=== PATIENT | male | born 1945 | race Caucasian/White ===

== ENCOUNTER → 2025-08-10 15:05 | Outpatient (REF) | payer MEDICARE, OTHER, SELFPAY | LOC: RCS 15:05 | PROVIDERS: ATTENDING PHYSICIAN Orthopaedic Surgery Hand Surgery; FAMILY PHYSICIAN Family Medicine | DX: Z01.818 Encounter for other preprocedural examination (principal) | CPT/HCPCS: 36415; 93005 ==

== ENCOUNTER → 2025-09-08 10:37 | Outpatient (REF) | payer MEDICARE, OTHER, SELFPAY ==
[2025-09-08 11:35] LABS: Blood Urea Nitrogen 16 mg/dl (9-20); Calcium 9.2 mg/dl (8.4-10.2); Carbon Dioxide 29 mmol/L (22-30); Chloride 98 mmol/L (98-107); Glucose 88 mg/dl (70-99); Potassium 4.8 mmol/L (3.5-5.1); Sodium 129 mmol/L (135-145)
[2025-09-08 11:46] LABS: eGFR 32.91
== END ==
LOC: REG 10:37
PROVIDERS: ATTENDING PHYSICIAN Physician Assistant
DX: N18.9 Chronic kidney disease, unspecified (principal)
CPT/HCPCS: 36415; 80048

== ENCOUNTER → 2025-09-09 07:12 | Outpatient (REF) | payer MEDICARE, OTHER, SELFPAY | LOC: RAD 07:12 | PROVIDERS: ATTENDING PHYSICIAN Orthopaedic Surgery Hand Surgery; FAMILY PHYSICIAN Family Medicine | DX: M25.511 Pain in right shoulder (principal) | CPT/HCPCS: 73200 ==

== ENCOUNTER → 2025-09-14 16:39 | Outpatient (REF) | payer MEDICARE, OTHER, SELFPAY ==
[2025-09-14 18:19] LABS: ALT (SGPT) 27 U/L (0-50); AST (SGOT) 29 U/L (17-59); Albumin 4.2 g/dl (3.5-5.0); Alkaline Phosphatase 87 U/L (38-126); Blood Urea Nitrogen 19 mg/dl (9-20); Calcium 9.4 mg/dl (8.4-10.2); Carbon Dioxide 31 mmol/L (22-30); Chloride 97 mmol/L (98-107); Glucose 86 mg/dl (70-99); Potassium 4.5 mmol/L (3.5-5.1); Sodium 133 mmol/L (135-145); Total Protein 6.9 g/dl (6.3-8.2); eGFR > 60.00
== END ==
LOC: REG 16:39
PROVIDERS: ATTENDING PHYSICIAN Internal Medicine Nephrology; FAMILY PHYSICIAN Family Medicine
DX: N17.0 Acute kidney failure with tubular necrosis (principal)
CPT/HCPCS: 36415; 80053; 82570; 83970; 84156

== ENCOUNTER → 2025-09-16 10:36 | Outpatient (REF) | payer MEDICARE, OTHER, SELFPAY ==
[2025-09-16 12:57] LABS: Height Cm 170.18 CM
[2025-09-16 12:58] LABS: Weight Kg 68.0 KG.
[2025-09-16 14:56] LABS: 24 Hour Urine Total Volume 3220 ml; Creat Clear Result 62.5 ml/min (61-166)
== END ==
LOC: REG 10:36
PROVIDERS: ATTENDING PHYSICIAN Internal Medicine Nephrology; FAMILY PHYSICIAN Family Medicine
DX: N17.0 Acute kidney failure with tubular necrosis (principal)
CPT/HCPCS: 81050; 82575

== ENCOUNTER 2025-09-21 06:19 | Day surgery (SDC) | payer MEDICARE, OTHER, SELFPAY ==
--- NOTE | 2025-09-01 12:14 | CM ---
Demographics: confirmed
Living situation: lives with , two story home
Support Person Post Operatively: , Carmen
History of
VN: No
SNF: No
Outpatient: [facility] when medically ready
Has patient purchased required equipment: yes
PCP: confirmed
Pharmacy: [facility]
Post Operative Discharge Plan: Home with .
[2025-09-03 13:52] VITALS: BMI 24.6
[2025-09-03 14:19] LABS: Hematocrit 44.8 % (39.0-52.0); Hemoglobin 15.7 g/dL (13.0-18.0); Mean Corp Hgb Conc. 35.0 g/dL (33.0-37.0); Mean Corpuscular Volume 87.2 fL (80.0-94.0); Platelet Count 258 10^3/uL (130-400); Red Cell Dist. Width 11.9 % (11.5-14.5)
[2025-09-03 14:42] LABS: ALT (SGPT) 27 U/L (0-50); AST (SGOT) 30 U/L (17-59); Albumin 4.0 g/dl (3.5-5.0); Alkaline Phosphatase 68 U/L (38-126); Blood Urea Nitrogen 21 mg/dl (9-20); Calcium 9.0 mg/dl (8.4-10.2); Carbon Dioxide 28 mmol/L (22-30); Chloride 99 mmol/L (98-107); Glucose 71 mg/dl (70-99); Potassium 5.1 mmol/L (3.5-5.1); Sodium 133 mmol/L (135-145); Total Protein 6.7 g/dl (6.3-8.2)
[2025-09-03 15:58] LABS: Estimated Creatinine Clearance 23 ml/min; eGFR 27.83
[2025-09-03 18:27] VITALS: BMI 24.6
[2025-09-04 10:32] LABS: Glycohemoglobin (HgbA1c) 5.3 % (4.0-5.6)
[2025-09-21] VITALS (7 sets, daily range): BP systolic 100–152; BP diastolic 58–87; BMI 24.6
[2025-09-21] MEDS: NORMOSOL-R/PLASMALYTE-A 1000 IV (11:09)
[2025-09-21] MEDS: BACTROBAN NASAL 1 GRAM NASAL (11:17)
[2025-09-21] MEDS: TYLENOL 1000 MG PO (11:17)
[2025-09-21] MEDS: CELEBREX 200 MG PO (11:17)
[2025-09-21] MEDS: ANCEF 5 IV (16:24)
== END 2025-09-21 17:10 | disposition home or self-care (01) ==
LOC: SDS 06:19
PROVIDERS: ATTENDING PHYSICIAN Orthopaedic Surgery Hand Surgery; FAMILY PHYSICIAN Family Medicine; OTHER PHYSICIAN Physician Assistant; REFERRING PHYSICIAN Internal Medicine
DX: M19.011 Primary osteoarthritis, right shoulder (principal)
CPT/HCPCS: 23472; 36415; 73020; 80053; 83036; 85027; 87070; C1713; C1776

== ENCOUNTER 2025-09-24 20:20 | Emergency (ER) | payer MEDICARE, OTHER, SELFPAY ==
[2025-09-24 20:24] VITALS: BP 150/74
[2025-09-24 20:53] LABS: Hematocrit 35.8 % (39.0-52.0); Hemoglobin 12.3 g/dL (13.0-18.0); Mean Corp Hgb Conc. 34.4 g/dL (33.0-37.0); Mean Corpuscular Volume 88.6 fL (80.0-94.0); Nucleated Red Blood Cells % 0 % (-); Platelet Count 221 10^3/uL (130-400); Red Cell Dist. Width 12.1 % (11.5-14.5)
[2025-09-24 21:06] LABS: ALT (SGPT) 23 U/L (0-50); AST (SGOT) 37 U/L (17-59); Albumin 3.4 g/dl (3.5-5.0); Alkaline Phosphatase 77 U/L (38-126); Blood Urea Nitrogen 19 mg/dl (9-20); Calcium 8.5 mg/dl (8.4-10.2); Carbon Dioxide 29 mmol/L (22-30); Chloride 95 mmol/L (98-107); Glucose 103 mg/dl (70-99); Potassium 4.5 mmol/L (3.5-5.1); Sodium 127 mmol/L (135-145); Total Protein 5.9 g/dl (6.3-8.2); eGFR > 60.00
[2025-09-24 23:09] VITALS: BP 126/75
--- NOTE | 2025-09-25 00:41 | ED.GENMED ---
History of Present Illness
General
Chief Complaint: Swelling
Source: patient and spouse
Time Seen by Provider: 09/24/25 23:40
History of Present Illness
History of Present Illness:
80-year-old male presents to the emergency room complaining of swelling in his right arm. Patient is about postop day 3 from a right shoulder replacement. Patient was concerned because he noted some purplish discoloration and swelling of the
forearm. He denies any chest pain, shortness of breath, fever or chills. He has been following the postoperative instructions given by his surgeon is not moving his shoulder. Patient is right-hand dominant.
Past History
Past History
ED Past Medical History: GERD, Other (Osteoarthritis) and Other (diverticulosis)
ED Past Surgical History: Appendectomy, Orthopedic (Left knee arthroscopy, right Achilles repair, right knee arthroscopy, right shoulder surgery 09/14/2019.) and Other (Esophageal foreign body removal 2013)
Social History
Tobacco: Non-smoker
Alcohol: Occasional
Personal:
Living: with family
Employment: Retired
Family History
Family History: Cancer (Brother whom while on hospice care 09/14/2019)
Phy Exam
Physical Exam
Physical Exam:
General: Awake, Alert, Oriented X3. No acute distress.
Vitals: unremarkable
Head: Atraumatic
Eyes: Pupils equal, EOMI
Throat: Airway intact, no exudates
Neck: Trachea midline
Lungs: Clear and equal b/l
Heart: Regular rate, no murmurs
Neuro: Nonfocal
Skin: Warm, dry, no rash
Extremities: pulses equal b/l
Right upper extremity: Surgical dressing in place. No significant erythema or swelling noted of the shoulder. There are some mild ecchymosis tracking down to the elbow and forearm. No significant swelling of the forearm noted at
this time. Range of motion intact in the fingers. Sensation intact. Cap refill brisk.
Scores
Heart Failure Risk
Heart Failure Risk Score: Not Applicable
Course
Orders/Labs/Results
Orders:
Orders
09/24/25 20:31
Complete Blood Count/With Diff Urgent
Comprehensive Metabolic Panel Urgent
09/25/25
US Periph Venous UPPER Ext RT Urgent
Reason For Exam: swelling
Abnormal Lab Results
09/24/25
20:31
RBC 4.04 L 10^6/uL
(4.70-6.10)
Hgb 12.3 L g/dL
(13.0-18.0)
Hct 35.8 L %
(39.0-52.0)
Absolute Monos (auto) 0.9 H 10^3/uL
(0.1-0.6)
Immature Gran % 0.6 H %
(0-0.5)
Monocytes % 11.9 H %
(1.7-9.3)
Sodium 127 L mmol/L
(135-145)
Chloride 95 L mmol/L
(98-107)
Glucose 103 H mg/dl
(70-99)
Total Protein 5.9 L g/dl
(6.3-8.2)
Albumin 3.4 L g/dl
(3.5-5.0)
09/24/25 20:31
09/24/25 20:31
Vital Signs
Initial and Last Documented VS:
Initial Vital Signs
Temp Pulse Resp BP Pulse Ox
98.2 F 78 20 150/74 99
09/24/25 20:24 09/24/25 20:24 09/24/25 20:24 09/24/25 20:24 09/24/25 20:24
Last Documented Vital Signs
Temp Pulse Resp BP Pulse Ox
98.2 F 77 16 126/75 100
09/24/25 20:24 09/24/25 23:09 09/24/25 23:09 09/24/25 23:09 09/25/25 00:44
MDM/Problems Addressed
Differential Diagnosis Includes:
. Swelling, dependence. Ecchymosis, DVT
MDM/Problems Addressed:
Ultrasound shows no evidence of DVT. Physical exam is not concerning for any postoperative complication or infection. Suspect normal postoperative swelling and ecchymosis.
*Pulse Oximetry
SaO2: 100
Oxygen Mode of Delivery: Room air
Patient hypoxic: no
*Critical Care Note
Total Time (30-74mins, 75-104mins- exclusive of procedures): Not Applicable
ED Attending Note
-
Portions of this chart may have been created with voice recognition software.� Occasional wrong word or��sound alike� substitutions may have occurred due to the inherent limitations of voice recognition software.
Discharge Plan
Departure
Patient Disposition: Home (Routine Discharge)
Date of Disposition: 09/25/25
Time of Disposition: 00:41
Patient with high blood pressure during this ER visit?: No
Condition: Good
Discharge Problem:
Swelling of arm, Postoperative ecchymosis
Instructions: Swelling
Prescriptions:
No Action
cholecalciferol (vitamin D3) [Vitamin D3] 400 UNITS tablet
400 units PO DAILY
multivitamin with folic acid [Tab-A-Maribell] 1 TABLET tablet
1 tab PO DAILY
Patient Comments:
Mens Multivitamin
ascorbic acid (vitamin C) [Vitamin C] 500 MG tablet
500 mg PO DAILY Qty: 0 0RF
Fish Oil
1 dose PO DAILY
vitamin D3-vitamin K2
1 dose PO DAILY
oxycodone 5 mg tablet
5 - 10 mg PO Q6H PRN (Reason: moderate-severe pain) Qty: 30 0RF
Patient Comments:
for post op
Rx Instructions:
1 tab for moderate pain, 2 if severe.
Dx total joint.
gabapentin 300 mg capsule
300 mg PO HS Qty: 10 0RF
Patient Comments:
for post op
ondansetron HCl 4 mg tablet
4 mg PO Q6H PRN (Reason: nausea and vomiting) Qty: 30 0RF
Patient Comments:
for post op
famotidine [Pepcid] 20 mg tablet
20 mg PO HS Qty: 30 0RF
Patient Comments:
for post op
Rx Instructions:
Take nightly while on post-surgical pain meds to reduce GI upset.
doxycycline hyclate 100 mg capsule
100 mg PO BID Qty: 7 0RF
Patient Comments:
for post op
Rx Instructions:
Start night of discharge and continue twice a day until finished.
Take with probiotic.
mupirocin 2 % ointment
1 applic intranasal BID Qty: 1 0RF
Patient Comments:
Applied last HS by patient but not this am
magnesium L-lactate
1 tab PO HS
Nattokinase 50 mg Capsule
50 mg PO WEEKLY
tamsulosin 0.4 mg capsule
0.4 mg PO HS Qty: 10 0RF
Patient Comments:
Patient states that he forgot to start it pre op
Rx Instructions:
Start 3 nights prior to surgery and continue nightly until finished.
HOLD IF systolic blood pressure <100
acetaminophen [Acetaminophen Extra Strength] 500 mg tablet
1,000 mg PO Q6H Qty: 60 0RF
Rx Instructions:
DO NOT exceed >4000 mg daily.
docusate sodium [Colace] 100 mg capsule
100 mg PO BID Qty: 30 0RF
sennosides [senna] 8.6 mg tablet
17.2 mg PO BID Qty: 30 0RF
magnesium hydroxide [Milk of Magnesia] 400 mg/5 mL suspension
30 ml PO HS PRN (Reason: constipation) Qty: 3780 0RF
Rx Instructions:
Add to bowel regimen of Colace and Senna should no bowel movement occur within 48-72 hours post-surgery.
aspirin 325 mg tablet
325 mg PO DAILY Qty: 30 0RF
Rx Instructions:
Take daily x4 weeks for blood clot prevention; then resume Aspirin 81 mg daily.
Saccharomyces boulardii [Florastor] 250 mg capsule
250 mg PO BID Qty: 7 0RF
Rx Instructions:
Over the counter. Take while on antibiotic.
If unavailable, choose a different probiotic.
famotidine 20 MG tablet
20 mg PO HS Qty: 1 0RF
Rx Instructions:
Take nightly while on post-surgical pain meds to reduce GI upset.
Referrals:
Ismael Feng, [Family Provider, Family Practice]
Activity Restrictions/Additional Instructions:
I believe the swelling and abnormality noted of the right lower arm are related to your recent surgery. I think this is a combination of swelling from the surgery itself as well as the natural movement of bruising from the upper arm to the lower
arm. Follow-up with your orthopedic surgeon as directed. Give them a call tomorrow morning if you have any further concerns. Ultrasound of your arm shows no clots in the veins of your arm.
Interventions
Interventions:
*Risk Screen - Suicide Last Done: 09/24/25 22:16
*General Assessment Last Done: 09/24/25 20:24
*Neglect/Abuse Screening Last Done: 09/24/25 22:16
*ED- Fall Risk Assessment Last Done: 09/24/25 22:16
*Nursing Disposition Last Done: 09/25/25 01:06
ED- Cardiac Assessment Last Done: 09/24/25 22:16
ED- Pulmonary Assessment Last Done: 09/24/25 22:16
ED-Skin Assessment Last Done: 09/24/25 22:16
Discharge Date and Time
Discharge Date/Time: 11/08/25 01:07
Print Language: TURKMEN
== END 2025-09-25 01:07 | disposition home or self-care (01) ==
LOC: EMR 20:20
PROVIDERS: EMERGENCY PHYSICIAN Emergency Medicine; FAMILY PHYSICIAN Family Medicine
DX: R22.31 Localized swelling, mass and lump, right upper limb (principal); Z47.1 Aftercare following joint replacement surgery; M19.90 Unspecified osteoarthritis, unspecified site; K21.9 Gastro-esophageal reflux disease without esophagitis; Z80.9 Family history of malignant neoplasm, unspecified; Z90.49 Acquired absence of other specified parts of digestive tract; Z96.611 Presence of right artificial shoulder joint
CPT/HCPCS: 99284; 80053; 85025; 93971

== ENCOUNTER 2025-10-01 12:42 | Emergency (ER) | payer MEDICARE, OTHER, SELFPAY ==
[2025-10-01 12:59] VITALS: BP 144/87
[2025-10-01 16:03] VITALS: BP 185/88; BMI 23.4
[2025-10-01 16:57] LABS: Urine Character Clear (Clear)
[2025-10-01 17:13] LABS: Urine Red Blood Cell 0-2 /HPF (0-2); Urine Squamous Cell 0-2 /LPF (Few); Urine White Cell 0-2 /HPF (0-5)
[2025-10-01 17:45] VITALS: BP 168/85
--- NOTE | 2025-10-01 18:55 | ED.GENMED ---
History of Present Illness
General
Chief Complaint: Bowel Problem
Source: patient and spouse
Exam Limitations: none
Time Seen by Provider: 10/01/25 16:13
Nursing documentation reviewed up to this point in time: agreed with
History of Present Illness
History of Present Illness:
Patient to the emergency department with complaint of constipation and urinary retention. States his last bowel movement was 5 days ago. He took senna 3 tablets earlier today without improvement. He then used a suppository also without
improvement. He had shoulder replacement surgery done a few weeks ago and was prescribed opioid pain medication. He reports infrequent use of this medication. No prior history of constipation. He also states that he has been unable to pass any
urine since approximately 2 AM today. Brought to the emergency department by his for evaluation.
Past History
Past History
ED Past Medical History: GERD, Other (Osteoarthritis) and Other (diverticulosis)
ED Past Surgical History: Appendectomy, Orthopedic (Left knee arthroscopy, right Achilles repair, right knee arthroscopy, right shoulder surgery 09/14/2019.) and Other (Esophageal foreign body removal 2013)
Social History
Tobacco: Non-smoker
Alcohol: Occasional
Personal:
Living: with family
Employment: Retired
Family History
Family History: Cancer (Brother whom while on hospice care 09/14/2019)
Review of Systems
Review of Systems
Allergies reviewed?: Yes
All Other Systems: ROS reviewed and negative except as documented in HPI and ROS
Constitutional: Reports no symptoms
EENT: Reports no symptoms
Respiratory: Reports no symptoms
Cardiac: Reports no symptoms
ABD/GI: Reports constipated
: Reports difficulty voiding
Musculoskeletal: Reports no symptoms
Skin: Reports no symptoms
Neurological: Reports no symptoms
Psychiatric: Reports no symptoms
Phy Exam
General Physical Exam
General Presentation: moderate distress
General age: appears stated age
General Skin: warm and dry
General Habitus: normal
General Mental: alert
Cardiovascular Exam
Cardiovascular Exam: regular rate/rhythm
Pulmonary Exam
Pulmonary Exam: lungs clear and no respiratory distress
Gastrointestinal Exam
Gastrointestinal Exam: distended
Palpation: generalized: Moderate tenderness
Rectal Exam: normal external exam and hard stool
Stool: brown
Guaiac Status: negative
Musculoskeletal Exam
Musculoskeletal Exam: full ROM (He has a shoulder immobilizer on RUE, s/p shoulder replacement) and neuro vasc intact
Skin Exam
Skin Exam: normal color, warm/dry and no rash
Psychiatric Exam
Psychiatric Exam: normal mood/affect
Course
Orders/Labs/Results
Orders:
Orders
10/01/25 16:21
Bladder Scan- Treatment ONCE
10/01/25 16:39
Enema- Treatment ONCE
Type: Milk of Molasses
10/01/25 16:44
Urinalysis Reflex To Culture Urgent
Date Specimen was Collected: 10/01/25
Time Specimen was Collected: 16:41
Urine Microscopic Reflex Cult Urgent
10/01/25 17:45
Abdomen Xray - 1 View [CR Abdomen - 1 View] Urgent
Comment:
Reason For Exam: constipation
Abnormal Lab Results
10/01/25
16:44
Urine Ketones 1+ A
(Negative)
Urine Albumin (Reflex) 1+ A
(Neg - Trace)
Vital Signs
Initial and Last Documented VS:
Initial Vital Signs
Temp Pulse Resp BP Pulse Ox
97.7 F 94 18 144/87 99
10/01/25 12:59 10/01/25 12:59 10/01/25 12:59 10/01/25 12:59 10/01/25 12:59
Last Documented Vital Signs
Temp Pulse Resp BP Pulse Ox
97.7 F 94 18 185/88 99
10/01/25 12:59 10/01/25 12:59 10/01/25 12:59 10/01/25 16:03 10/01/25 16:04
*Radiology
Radiology exam reviewed: radiology read reviewed
*Pulse Oximetry
SaO2: 99
Oxygen Mode of Delivery: Room air
Patient hypoxic: no
*Critical Care Note
Total Time (30-74mins, 75-104mins- exclusive of procedures): Not Applicable
Update Note
Update Note:
Patient to the emergency department for report of constipation and urinary retention. Last bowel movement was approximately 5 days ago. Last urinated approximately 2 AM today. Bladder scan positive for 800 cc of urine. Straight cath procedure
was performed by RN and 900 cc of urine was obtained. UA negative for UTI. Rectal exam positive for hard stool high up in rectum. He was given a milk of molasses enema and was able to pass a large amount of stool. He is also now able to urinate
without any difficulty. Flatplate of abdomen confirms that there is still a moderate amount of stool throughout his colon. There is no bolus at the rectum. He was prescribed senna and Duca locks by his family doctor to be taken daily and he will
continue this starting tomorrow. He was also instructed to increase his fluid intake. He will be discharged home tonight and will follow-up with his family doctor next week. He was given instructions on signs and symptoms to return to the
emergency department and he is agreeable to this plan.
ED Attending Note
-
Portions of this chart may have been created with voice recognition software.� Occasional wrong word or��sound alike� substitutions may have occurred due to the inherent limitations of voice recognition software.
Discharge Plan
Departure
Patient Disposition: Home (Routine Discharge)
Date of Disposition: 10/01/25
Time of Disposition: 18:53
Patient with high blood pressure during this ER visit?: No
Condition: Good
Covid-19: Not Applicable
Discharge Problem:
Constipation, Acute urinary retention
Instructions: Constipation, Adult (DC)
Prescriptions:
No Action
cholecalciferol (vitamin D3) [Vitamin D3] 400 UNITS tablet
400 units PO DAILY
multivitamin with folic acid [Tab-A-Maribell] 1 TABLET tablet
1 tab PO DAILY
Patient Comments:
Mens Multivitamin
ascorbic acid (vitamin C) [Vitamin C] 500 MG tablet
500 mg PO DAILY Qty: 0 0RF
Fish Oil
1 dose PO DAILY
vitamin D3-vitamin K2
1 dose PO DAILY
oxycodone 5 mg tablet
5 - 10 mg PO Q6H PRN (Reason: moderate-severe pain) Qty: 30 0RF
Patient Comments:
for post op
Rx Instructions:
1 tab for moderate pain, 2 if severe.
Dx total joint.
gabapentin 300 mg capsule
300 mg PO HS Qty: 10 0RF
Patient Comments:
for post op
ondansetron HCl 4 mg tablet
4 mg PO Q6H PRN (Reason: nausea and vomiting) Qty: 30 0RF
Patient Comments:
for post op
famotidine [Pepcid] 20 mg tablet
20 mg PO HS Qty: 30 0RF
Patient Comments:
for post op
Rx Instructions:
Take nightly while on post-surgical pain meds to reduce GI upset.
doxycycline hyclate 100 mg capsule
100 mg PO BID Qty: 7 0RF
Patient Comments:
for post op
Rx Instructions:
Start night of discharge and continue twice a day until finished.
Take with probiotic.
mupirocin 2 % ointment
1 applic intranasal BID Qty: 1 0RF
Patient Comments:
Applied last HS by patient but not this am
magnesium L-lactate
1 tab PO HS
Nattokinase 50 mg Capsule
50 mg PO WEEKLY
tamsulosin 0.4 mg capsule
0.4 mg PO HS Qty: 10 0RF
Patient Comments:
Patient states that he forgot to start it pre op
Rx Instructions:
Start 3 nights prior to surgery and continue nightly until finished.
HOLD IF systolic blood pressure <100
acetaminophen [Acetaminophen Extra Strength] 500 mg tablet
1,000 mg PO Q6H Qty: 60 0RF
Rx Instructions:
DO NOT exceed >4000 mg daily.
docusate sodium [Colace] 100 mg capsule
100 mg PO BID Qty: 30 0RF
sennosides [senna] 8.6 mg tablet
17.2 mg PO BID Qty: 30 0RF
magnesium hydroxide [Milk of Magnesia] 400 mg/5 mL suspension
30 ml PO HS PRN (Reason: constipation) Qty: 3780 0RF
Rx Instructions:
Add to bowel regimen of Colace and Senna should no bowel movement occur within 48-72 hours post-surgery.
aspirin 325 mg tablet
325 mg PO DAILY Qty: 30 0RF
Rx Instructions:
Take daily x4 weeks for blood clot prevention; then resume Aspirin 81 mg daily.
Saccharomyces boulardii [Florastor] 250 mg capsule
250 mg PO BID Qty: 7 0RF
Rx Instructions:
Over the counter. Take while on antibiotic.
If unavailable, choose a different probiotic.
famotidine 20 MG tablet
20 mg PO HS Qty: 1 0RF
Rx Instructions:
Take nightly while on post-surgical pain meds to reduce GI upset.
Referrals:
Ismael Feng DO [Family Provider, Family Practice] - Follow up in 2-3 days
Activity Restrictions/Additional Instructions:
Increase your fluid intake. Take senna and dulcolax as previously prescribed by your family doctor. Return to the emergency department for abdominal pain, n/v/, inability to pass urine, or for any further concerns.
Interventions
Interventions:
*Risk Screen - Suicide Last Done: 10/01/25 16:08
*General Assessment Last Done: 10/01/25 16:08
*Neglect/Abuse Screening Last Done: 10/01/25 12:59
*ED- Fall Risk Assessment Last Done: 10/01/25 16:08
*ED COVID-19 Vaccine History Last Done: 10/01/25 16:08
*ED Influenza Vaccine History Last Done: 10/01/25 16:08
VI-Dqauzy-Rcghlxnfsr Assessment Last Done: 10/01/25 16:04
Discharge Date and Time
Print Language: SCOTTISH
== END 2025-10-01 19:06 | disposition home or self-care (01) ==
LOC: EMR 12:42
PROVIDERS: Nurse Practitioner; EMERGENCY PHYSICIAN Student in an Organized Health Care Education/Training Program; FAMILY PHYSICIAN Family Medicine
DX: K59.00 Constipation, unspecified (principal); R33.9 Retention of urine, unspecified; K21.9 Gastro-esophageal reflux disease without esophagitis; M19.90 Unspecified osteoarthritis, unspecified site; Z96.611 Presence of right artificial shoulder joint
CPT/HCPCS: 99284; 51701; 74018; 81003; 81015